=== PATIENT | male | born 1985 | race American Indian/Alaskan Native ===

== ENCOUNTER 2020-02-02 05:55 | Emergency (ER) | payer SELFPAY ==
[2020-02-02 06:14] VITALS: BP 119/74
[2020-02-02 07:11] LABS: Bilirubin,Urine NEG (Negative); Blood,Urine NEG (Negative); Color,Urine Yellow (Yellow); Mucus,Urine 1+ /HPF; Protein,Urine <15 mg/dL mg/dL (Negative); WBC,Urine < 1.0 /HPF (0.0-6.0)
[2020-02-02 07:58] LABS: Amphetamine Screen,Urine Negative; Methadone Screen,Urine Negative; Opiate Screen,Urine Negative
[2020-02-02 08:12] LABS: Benzodiazepines Screen,Urine Positive; Cannabinoid Screen,Urine Positive; Cocaine Screen,Urine Positive
== END 2020-02-02 07:00 | disposition left against medical advice (07) ==
LOC: ED 05:55
DX: Z76.0 Encounter for issue of repeat prescription (principal); Z53.21 Procedure and treatment not carried out due to patient leaving prior to being seen by health care provider
CPT/HCPCS: 80307; 81001

== ENCOUNTER 2020-02-05 00:41 | Emergency (ER) | payer MEDICAID ==
--- NOTE | 2020-02-05 02:56 | Emergency Department Report ---
ED General Adult HPI - General Chief complaint: Psych Stated complaint: PSYCH MEDICATION REFILL PUI?: No Time Seen by Provider: 02/05/20 02:12 Source: patient, RN notes reviewed, old records reviewed Mode of arrival: Ambulatory Limitations: No Limitations - History of Present Illness Initial comments: The patient was evaluated in the emergency department for symptoms described in the history of present illness. He/she was evaluated in the context of the global COVID-19 pandemic, which necessitated consideration that the patient might be at risk for infection with the virus that causes COVID-19. Institutional protocols and algorithms that pertain to the evaluation of patients at risk for COVID-19 are in a state of rapid change based on information released by regulatory bodies including the CDC and federal and state organizations. These policies and algorithms were followed during the patient's care in the emergency department. Please note that these policies, procedures and recommendations changed on a rapid basis. Patient is a 35-year-old gentleman who is not known to myself previously. He reports a past history of psychiatric disease and in the past has followed with [facility]. He presents to the ER with a complaint of painless request for having medications refilled; Depakote, 500 mg daily, Seroquel, and Klonopin. He denies physical pain, homicidality, suicidality, intention to overdose, and hallucinations. To me, he makes no complaint of insomnia. He denies additional complaints. He does not describe exacerbating factors, relieving factors, aggravating factors, radiation factors. He ran out of his medications approximately 9 months ago Improves with: none Worsens with: none Associated Symptoms: denies other symptoms - Related Data Previous Rx's Medication Instructions Recorded Last Taken Type Valproic Acid [DepaKENE] 500 mg PO QDAY #30 capsule 02/05/20 Unknown Rx Allergies Allergy/AdvReac Type Severity Reaction Status Date / Time No Known Allergies Allergy Unverified 02/02/20 06:26 ED Review of Systems ROS: Stated complaint: PSYCH MEDICATION REFILL Other details as noted in HPI Constitutional: denies: fever Eyes: denies: eye discharge ENT: denies: epistaxis Respiratory: denies: cough Cardiovascular: denies: chest pain Gastrointestinal: denies: abdominal pain Genitourinary: denies: dysuria Musculoskeletal: denies: back pain Psychiatric: denies: homicidal thoughts, suicidal thoughts ED Past Medical Hx - Past Medical History Previous Medical History?: Yes Hx Psychiatric Treatment: Yes (Bipolar, Schizophrenia) - Surgical History Past Surgical History?: No - Social History Smoking Status: Current Every Day Smoker Substance Use Type: Alcohol, Cocaine - Medications Home Medications: Home Medications Medication Instructions Recorded Confirmed Last Taken Type Valproic Acid [DepaKENE] 500 mg PO QDAY #30 capsule 02/05/20 Unknown Rx ED Physical Exam - General Limitations: No Limitations General appearance: alert, in no apparent distress - Head Head exam: Present: atraumatic, normocephalic - Eye Eye exam: Present: normal appearance, EOMI. Absent: nystagmus - ENT ENT exam: Present: normal exam, normal orophraynx, mucous membranes moist, normal external ear exam - Neck Neck exam: Present: normal inspection, full ROM. Absent: tenderness, meningismus - Respiratory Respiratory exam: Present: normal lung sounds bilaterally. Absent: respiratory distress, wheezes, rales, rhonchi, stridor, decreased breath sounds - Cardiovascular Cardiovascular Exam: Present: regular rate, normal rhythm, normal heart sounds. Absent: bradycardia, tachycardia, irregular rhythm, systolic murmur, diastolic murmur, rubs, gallop - GI/Abdominal GI/Abdominal exam: Present: soft. Absent: distended, tenderness, guarding, rebound, rigid - Rectal Rectal exam: Present: deferred - Extremities Exam Extremities exam: Present: normal inspection, full ROM, other (2+ pulses noted in the bilateral upper and lower extremities. There is no palpable cord. negative Homans sign. Muscular compartments are soft. The pelvis is stable.). Absent: pedal edema, calf tenderness - Back Exam Back exam: Present: normal inspection, full ROM. Absent: tenderness, CVA tenderness (R), CVA tenderness (L), paraspinal tenderness, vertebral tenderness - Neurological Exam Neurological exam: Present: alert, other (No facial droop. Tongue midline. Extraocular movements intact bilaterally. Facial sensation intact to light touch in V1, V2, V3 distribution bilaterally. 5 and a 5 strength in 4 extremities. Sensation intact to light touch in 4 extremities.). Absent: motor sensory deficit - Psychiatric Psychiatric exam: Present: flat affect. Absent: homicidal ideation, suicidal ideation - Skin Skin exam: Present: warm, dry, intact, normal color. Absent: rash ED Course Vital Signs 02/05/20 01:39 Temperature 98.4 F Pulse Rate 78 Respiratory 18 Rate Blood Pressure 115/74 O2 Sat by Pulse 97 Oximetry ED Medical Decision Making - Lab Data Vital Signs 02/05/20 01:39 Temperature 98.4 F Pulse Rate 78 Respiratory 18 Rate Blood Pressure 115/74 O2 Sat by Pulse 97 Oximetry - Medical Decision Making Differential diagnosis, including but not limited to: Medication refill, general medical examination, medical screening examination Assessment and plan: 35-year-old gentleman, who is afebrile, with reassuring vital signs, with a benign and unremarkable physical examination, who is clini ami sober at this time, with a flat affect, but not homicidal, not suicidal, appears to exhibit decision-making capacity at this time, who does not present in acute crisis. Patient does not appear to have an emergent medical condition present at this time. He does not meet criteria for 1013 at this time. I told the patient I would be happy to refill Depakote 500 mg once daily x2 weeks, but that he would need to follow-up with an outpatient primary care doctor or psychiatrist for his Seroquel and Klonopin prescriptions. Currently, the patient is sleeping comfortably on his stretcher, in no acute distress, he is quite arousable, and his physical exam is benign and unremarkable. Patient does not appear to have an emergent medical or psychiatric condition present at this time Critical care attestation.: If time is entered above; I have spent that time in minutes in the direct care of this critically ill patient, excluding procedure time. ED Disposition Clinical Impression: Medication refill, General medical exam Disposition: DC-01 TO HOME OR SELFCARE Is pt being admited?: No Does the pt Need Aspirin: No Condition: Good Additional Instructions: Please follow-up with a psychiatrist or primary care doctor within the next month to have outpatient medications refilled. Avoid consumption of alcohol, tobacco and smoke products. Please return to the emergency room right away with new pain, worsening pain, migration of pain, projectile vomiting, change in mental status, confusion, inability to tolerate liquid feeds, homicidality, suicidality, or any new, worsened or different symptoms not present on the initial emergency room evaluation. [facility] [Outside] - 3-5 Days [facility] [Provider Group] - 3-5 Days
[2020-02-05 04:02] VITALS: BP 111/54
== END 2020-02-05 03:00 | disposition home or self-care (01) ==
LOC: ED 00:41
DX: F20.9 Schizophrenia, unspecified (principal); F31.9 Bipolar disorder, unspecified; F17.200 Nicotine dependence, unspecified, uncomplicated; F14.10 Cocaine abuse, uncomplicated; Z79.899 Other long term (current) drug therapy; Z76.0 Encounter for issue of repeat prescription; Z00.00 Encounter for general adult medical examination without abnormal findings
CPT/HCPCS: 99281

== ENCOUNTER 2020-03-23 18:16 | Emergency (ER) | payer MEDICAID ==
--- NOTE | 2020-03-23 19:46 | Emergency Department Report ---
HPI - General Chief Complaint: Psych Time Seen by Provider: 03/23/20 19:38 - HPI HPI: Room 16 The patient is a 35-year-old male present with a chief complaint of schizophrenia. The patient reportedly has been off of his psychiatric medications and "missing for longer than a month." The patient came home at [facility] and has been noted to have hallucinations. There is no family present at bedside. When asked why came to the emergency department the patient replies "because of my mother." When asked why the patient replies "I do not know." When asked if anything is bothering him the patient denies. Patient denies suicidal or homicidal ideation. Patient denies auditory visual hallucinations. ED Past Medical Hx - Past Medical History Previous Medical History?: No Hx Psychiatric Treatment: Yes (Bipolar, Schizophrenia) - Surgical History Past Surgical History?: No - Family History Family history: no significant - Social History Smoking Status: Current Every Day Smoker Substance Use Type: Alcohol, Cocaine, Heroin, Marijuana, Methamphetamines - Medications Home Medications: Home Medications Medication Instructions Recorded Confirmed Last Taken Type Valproic Acid [DepaKENE] 500 mg PO QDAY #30 capsule 02/05/20 Unknown Rx ED Review of Systems ROS: Stated complaint: PSYCH Other details as noted in HPI Constitutional: no symptoms reported Eyes: denies: eye pain Respiratory: no symptoms reported Cardiovascular: denies: chest pain Endocrine: no symptoms reported Gastrointestinal: denies: abdominal pain Genitourinary: denies: dysuria Musculoskeletal: denies: back pain Neurological: denies: headache Psychiatric: denies: auditory hallucinations, visual hallucinations, homicidal thoughts, suicidal thoughts Physical Exam - Physical Exam Physical Exam: GENERAL: The patient is well-developed well-nourished male standing in hallway not appearing to be in acute distress. Patient has flat affect. Appears to be talking to self at times HEENT: Normocephalic. Atraumatic. Extraocular motions are intact. Patient has moist mucous membranes. NECK: Supple. Trachea midline CHEST/LUNGS: Clear to auscultation. There is no respiratory distress noted. HEART/CARDIOVASCULAR: Regular. There is no tachycardia. There is no gallop rub or murmur. ABDOMEN: Abdomen is soft, nontender. Patient has normal bowel sounds. There is no abdominal distention. SKIN: There is no rash. There is no edema. There is no diaphoresis. NEURO: The patient is awake, alert, and oriented. The patient is cooperative. The patient has no focal neurologic deficits. The patient has normal speech and gait. MUSCULOSKELETAL: There is no evidence of acute injury. ED Medical Decision Making - Lab Data Result diagrams: 03/23/20 19:49 03/23/20 19:49 Laboratory Tests 03/23/20 03/23/20 03/23/20 19:49 19:49 19:49 WBC 5.0 RBC 4.34 Hgb 14.2 Hct 41.6 MCV 96 H MCH 33 H MCHC 34 RDW 12.3 L Plt Count 217 [place] % (Auto) Manager Multimedia Add Manual Diff Complete Total Counted 100 Seg Neutrophils % Manager Multimedia Seg Neuts % (Manual) 34.0 L Band Neutrophils % 0 Lymphocytes % (Manual) 53.0 H Reactive Lymphs % (Man) 0 Monocytes % (Manual) 12.0 H Eosinophils % (Manual) 1.0 Basophils % (Manual) 0 Metamyelocytes % 0 Myelocytes % 0 Promyelocytes % 0 Blast Cells % 0 Nucleated RBC % Not Reportable Seg Neutrophils # Man 1.7 L Band Neutrophils # 0.0 Lymphocytes # (Manual) 2.7 Abs React Lymphs (Man) 0.0 Monocytes # (Manual) 0.6 Eosinophils # (Manual) 0.1 Basophils # (Manual) 0.0 Metamyelocytes # 0.0 Myelocytes # 0.0 Promyelocytes # 0.0 Blast Cells # 0.0 WBC Morphology Not Reportable Hypersegmented Neuts Not Reportable Hyposegmented Neuts Not Reportable Hypogranular Neuts Not Reportable Smudge Cells Not Reportable Toxic Granulation Not Reportable Toxic Vacuolation Not Reportable Dohle Bodies Not Reportable Pelger-Huet Anomaly Not Reportable Caroline Rods Not Reportable Platelet Estimate Consistent w auto Clumped Platelets Not Reportable Plt Clumps, EDTA Not Reportable Large Platelets Rare Giant Platelets Not Reportable Platelet Satelliting Not Reportable Plt Morphology Comment Not Reportable RBC Morphology Not Reportable Dimorphic RBCs Not Reportable Polychromasia Not Reportable Hypochromasia Not Reportable Poikilocytosis Not Reportable Anisocytosis Few Microcytosis Not Reportable Macrocytosis Not Reportable Spherocytes Not Reportable Pappenheimer Bodies Not Reportable Sickle Cells Not Reportable Target Cells Not Reportable Tear Drop Cells Not Reportable Ovalocytes Not Reportable Helmet Cells Not Reportable Stuart-[place] Bodies Not Reportable [place] Rings Not Reportable Graeme Cells Not Reportable Bite Cells Not Reportable Crenated Cell Not Reportable Elliptocytes Not Reportable Acanthocytes (Spur) Not Reportable Rouleaux Not Reportable Hemoglobin C Crystals Not Reportable Schistocytes Not Reportable Malaria parasites Not Reportable Frankie Bodies Not Reportable Hem Pathologist Commnt No Sodium 136 L Potassium 3.6 Chloride 100.0 Carbon Dioxide 24 Anion Gap 16 BUN 18 Creatinine 1.0 Estimated GFR > 60 BUN/Creatinine Ratio 18 Glucose 95 Calcium 9.0 Total Bilirubin 0.80 AST 20 ALT 18 Alkaline Phosphatase 91 Total Protein 7.2 Albumin 4.1 Albumin/Globulin Ratio 1.3 Urine Color Urine Turbidity Urine pH Ur Specific [place] Urine Protein Urine Glucose (UA) Urine Ketones Urine Blood Urine Nitrite Urine Bilirubin Urine Urobilinogen Ur Leukocyte Esterase Urine WBC (Auto) Urine RBC (Auto) U Epithel Cells (Auto) Urine Bacteria (Auto) Urine Mucus Salicylates 0.5 L Urine Opiates Screen Urine Methadone Screen Acetaminophen Ur Barbiturates Screen Ur Phencyclidine Scrn Ur Amphetamines Screen U Benzodiazepines Scrn Urine Cocaine Screen U Marijuana (THC) Screen Drugs of Abuse Note Plasma/Serum Alcohol 03/23/20 03/23/20 03/23/20 19:49 19:49 Unknown WBC RBC Hgb Hct MCV MCH MCHC RDW Plt Count [place] % (Auto) Add Manual Diff Total Counted Seg Neutrophils % Seg Neuts % (Manual) Band Neutrophils % Lymphocytes % (Manual) Reactive Lymphs % (Man) Monocytes % (Manual) Eosinophils % (Manual) Basophils % (Manual) Metamyelocytes % Myelocytes % Promyelocytes % Blast Cells % Nucleated RBC % Seg Neutrophils # Man Band Neutrophils # Lymphocytes # (Manual) Abs React Lymphs (Man) Monocytes # (Manual) Eosinophils # (Manual) Basophils # (Manual) Metamyelocytes # Myelocytes # Promyelocytes # Blast Cells # WBC Morphology Hypersegmented Neuts Hyposegmented Neuts Hypogranular Neuts Smudge Cells Toxic Granulation Toxic Vacuolation Dohle Bodies Pelger-Huet Anomaly Caroline Rods Platelet Estimate Clumped Platelets Plt Clumps, EDTA Large Platelets Giant Platelets Platelet Satelliting Plt Morphology Comment RBC Morphology Dimorphic RBCs Polychromasia Hypochromasia Poikilocytosis Anisocytosis Microcytosis Macrocytosis Spherocytes Pappenheimer Bodies Sickle Cells Target Cells Tear Drop Cells Ovalocytes Helmet Cells Stuart-[place] Bodies [place] Rings Graeme Cells Bite Cells Crenated Cell Elliptocytes Acanthocytes (Spur) Rouleaux Hemoglobin C Crystals Schistocytes Malaria parasites Frankie Bodies Hem Pathologist Commnt Sodium Potassium Chloride Carbon Dioxide Anion Gap BUN Creatinine Estimated GFR BUN/Creatinine Ratio Glucose Calcium Total Bilirubin AST ALT Alkaline Phosphatase Total Protein Albumin Albumin/Globulin Ratio Urine Color Yellow Urine Turbidity Clear Urine pH 5.0 Ur Specific [place] 1.032 H Urine Protein 30 mg/dl Urine Glucose (UA) Neg Urine Ketones Tr Urine Blood Neg Urine Nitrite Neg Urine Bilirubin Neg Urine Urobilinogen 4.0 Ur Leukocyte Esterase Neg Urine WBC (Auto) 27.0 H Urine RBC (Auto) 7.0 U Epithel Cells (Auto) < 1.0 Urine Bacteria (Auto) 1+ Urine Mucus Few Salicylates Urine Opiates Screen Urine Methadone Screen Acetaminophen 5.0 L Ur Barbiturates Screen Ur Phencyclidine Scrn Ur Amphetamines Screen U Benzodiazepines Scrn Urine Cocaine Screen U Marijuana (THC) Screen Drugs of Abuse Note Plasma/Serum Alcohol < 0.01 03/23/20 Unknown WBC RBC Hgb Hct MCV MCH MCHC RDW Plt Count [place] % (Auto) Add Manual Diff Total Counted Seg Neutrophils % Seg Neuts % (Manual) Band Neutrophils % Lymphocytes % (Manual) Reactive Lymphs % (Man) Monocytes % (Manual) Eosinophils % (Manual) Basophils % (Manual) Metamyelocytes % Myelocytes % Promyelocytes % Blast Cells % Nucleated RBC % Seg Neutrophils # Man Band Neutrophils # Lymphocytes # (Manual) Abs React Lymphs (Man) Monocytes # (Manual) Eosinophils # (Manual) Basophils # (Manual) Metamyelocytes # Myelocytes # Promyelocytes # Blast Cells # WBC Morphology Hypersegmented Neuts Hyposegmented Neuts Hypogranular Neuts Smudge Cells Toxic Granulation Toxic Vacuolation Dohle Bodies Pelger-Huet Anomaly Caroline Rods Platelet Estimate Clumped Platelets Plt Clumps, EDTA Large Platelets Giant Platelets Platelet Satelliting Plt Morphology Comment RBC Morphology Dimorphic RBCs Polychromasia Hypochromasia Poikilocytosis Anisocytosis Microcytosis Macrocytosis Spherocytes Pappenheimer Bodies Sickle Cells Target Cells Tear Drop Cells Ovalocytes Helmet Cells Stuart-[place] Bodies [place] Rings Lindsay Cells Bite Cells Crenated Cell Elliptocytes Acanthocytes (Spur) Rouleaux Hemoglobin C Crystals Schistocytes Malaria parasites Frankie Bodies Hem Pathologist Commnt Sodium Potassium Chloride Carbon Dioxide Anion Gap BUN Creatinine Estimated GFR BUN/Creatinine Ratio Glucose Calcium Total Bilirubin AST ALT Alkaline Phosphatase Total Protein Albumin Albumin/Globulin Ratio Urine Color Urine Turbidity Urine pH Ur Specific [place] Urine Protein Urine Glucose (UA) Urine Ketones Urine Blood Urine Nitrite Urine Bilirubin Urine Urobilinogen Ur Leukocyte Esterase Urine WBC (Auto) Urine RBC (Auto) U Epithel Cells (Auto) Urine Bacteria (Auto) Urine Mucus Salicylates Urine Opiates Screen Presumptive negative Urine Methadone Screen Presumptive negative Acetaminophen Ur Barbiturates Screen Presumptive negative Ur Phencyclidine Scrn Presumptive negative Ur Amphetamines Screen Presumptive negative U Benzodiazepines Scrn Presumptive negative Urine Cocaine Screen Presumptive negative U Marijuana (THC) Screen Presumptive negative Drugs of Abuse Note Disclamer Plasma/Serum Alcohol - Differential Diagnosis Schizophrenia Critical care attestation.: If time is entered above; I have spent that time in minutes in the direct care of this critically ill patient, excluding procedure time. ED Disposition Clinical Impression: Psychosis Disposition: DC/TX-65 PSY HOSP/PSY UNIT Is pt being admited?: No Does the pt Need Aspirin: No Condition: Fair Referrals: PRIMARY CARE, [Primary Care Provider] - 3-5 Days Time of Disposition: 01:19 (Awaiting acceptance)
[2020-03-23 20:17] LABS: Amphetamine Screen,Urine PRESUMPTIVE NEGATIVE; Bacteria,Urine 1+ /HPF (Negative); Benzodiazepines Screen,Urine PRESUMPTIVE NEGATIVE; Bilirubin,Urine NEG (Negative); Blood,Urine NEG (Negative); Cannabinoid Screen,Urine PRESUMPTIVE NEGATIVE; Cocaine Screen,Urine PRESUMPTIVE NEGATIVE; Color,Urine Yellow (Yellow); Methadone Screen,Urine PRESUMPTIVE NEGATIVE; Mucus,Urine FEW /HPF; Opiate Screen,Urine PRESUMPTIVE NEGATIVE
[2020-03-23 20:20] LABS: Hematocrit 41.6 % (35.5-45.6); Hemoglobin 14.2 gm/dl (11.8-15.2); Mean Corpuscular HGB Conc 34 % (32-34); Mean Corpuscular Volume 96 fl (84-94); Platelet Count 217 K/mm3 (140-440); Red Blood Count 4.34 M/mm3 (3.65-5.03); Red Cell Distribution Width 12.3 % (13.2-15.2)
[2020-03-23 20:28] LABS: Alanine Aminotransferase 18 units/L (7-56); Albumin 4.1 g/dL (3.9-5); BUN/Creatinine Ratio 18; Blood Urea Nitrogen 18 mg/dL (9-20); Hemolysis Index 5
[2020-03-23 21:04] LABS: Basophils % (Manual) 0 % (0.0-1.8); Total Cells Counted 100
[2020-03-23 21:05] LABS: Anisocytosis Few; Large Platelets Rare; Platelet Estimate Consistent w Auto
[2020-03-23] MEDS ORDERED: LORazepam 1 MG TAB PO ONE (23:34)
--- NOTE | 2020-03-24 08:29 | Consultation ---
History of Present Illness - Reason for Consult Consult date: 03/24/20 Reason for consult: MHE Requesting physician: JULIET HOYOS - History of Present Psychiatric Illness Per ED Provider: The patient is a 35-year-old male present with a chief complaint of schizophrenia. The patient reportedly has been off of his psy chiatric medications and "missing for longer than a month." The patient came home at [facility] and has been noted to have hallucinations. There is no family present at bedside. When asked why came to the emergency department the patient replies "because of my mother." When asked why the patient replies "I do not know." When asked if anything is bothering him the patient denies. Patient denies suicidal or homicidal ideation. Patient denies auditory visual hallucinations. PSYCH HPI Patient is a 35-year-old, single unemployed currently on SSI -[place] male who resides with family with past psychiatric history of schizophrenia and no significant past medical history who presented to the ER by ambulance after mom called to have patient evaluated for mental health issues. Family report patient has been off his psychiatric medication has been missing for more than a month but came obliterans giving her was noted to be having hallucinations. Patient requested that he would like to go home, when asked why left arm patient says the left arm because he wanted to be different and be somebody else and be independent but when that did not work out he could not find his way back home. At this moment patient is denying any auditory or visual sedation, patient is not acutely psychotic, and also denying SI or HI thoughts PAST PSYCHIATRIC HISTORY Diagnoses: Schizophrenia Suicide attempts or Self-harm behavior: None reported Prior psychiatric hospitalizations: Yes Substance Abuse history: Crack cocaine Previous psychiatric medications tried: Multiple medication Outpatient treatment: Noncompliant PAST MEDICAL HISTORY: None reported Family Psychiatric History: None reported or documented SOCIAL HISTORY Marital Status: Single Living Arrangements: With family Employment Status: [employer] Access to guns/weapons: None reported Education: 10th grade History of Abuse: None reported Legal History: None reported REVIEW OF SYSTEMS Constitutional: Negative for weight loss ENT: Negative for stridor Respiratory: Negative for cough or hemoptysis All other systems reviewed and are negative MENTAL STATUS EXAMINATION General Appearance and Behavior: Age appropriate, good hygiene, wearing appropriate clothes, good eye contact, cooperative polite with questioning. Cooperation: Participating/engaged Psychomotor Behavior: unremarkable and within normal limits Mood: Good Affect and affective range: congruent with mood Thought Process: circumstitial Thought Content: paranoid, i Speech: Normal volume, Regular rate and rhythm, Intellectual Functioning: Average Suicidal Ideation: Denies SI Homicidal Ideation: Denies HI Impulse Control: impaired Insight and Judgment: limited insight and judgment, Memory: Normal, Attention: Normal, Orientation: Alert, oriented, Diagnoses: Assessment and Plan - Psychiatric problem (1) Schizophrenia, borderline Current Visit: Yes Status: Acute Treatment Plan At this moment patient is denying any auditory or visual sedation, patient is not acutely psychotic, though patient appears to be restless pacing around. Due to history of noncompliance we will start patient on long-term IM Haldol Decanoate and have her follow-up outpatient with a psychiatrist. Patient to be observed for at least 3 hours post IM decanoate MEDICATIONS: Risks, benefits and alternatives of medications discussed with the patient, questions answered and consent obtained from patient. PSYCHOTHERAPY: Supportive psychotherapy provided MEDICAL: Per primary team DELIRIUM PRECAUTIONS: Please re-orient patient frequently, keep lights on during the day, and minimize benzodiazepines and opiates as these medications could worsen patient's confusion. 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 Please contact with any questions and/or concerns. Medications and Allergies Allergies Allergy/AdvReac Type Severity Reaction Status Date / Time No Known Allergies Allergy Unverified 02/02/20 06:26 Home Medications Medication Instructions Recorded Confirmed Last Taken Type Haldol Decanoate 50 mg IM QWEEK #1 vial 03/24/20 Unknown Rx Valproic Acid [DepaKENE] 500 mg PO BID #30 capsule 03/24/20 Unknown Rx Active Meds: Active Medications Levofloxacin (Levaquin) 500 mg PO QDAY SAUL Stop: 03/30/20 10:00 Mental Status Exam - Vital signs Last Vital Signs Temp 97.5 F L 03/24/20 08:21 Pulse 65 03/24/20 08:21 Resp 19 03/24/20 08:21 BP 112/55 03/24/20 08:21 Pulse Ox 98 03/24/20 08:21 Results Result Diagrams: 03/23/20 19:49 03/23/20 19:49 Abnormal lab results 03/23/20 03/23/20 03/23/20 Range/Units 19:49 19:49 19:49 MCV 96 H (84-94) fl MCH 33 H (28-32) pg RDW 12.3 L (13.2-15.2) % Seg Neuts % (Manual) 34.0 L (40.0-70.0) % Lymphocytes % (Manual) 53.0 H (13.4-35.0) % Monocytes % (Manual) 12.0 H (0.0-7.3) % Seg Neutrophils # Man 1.7 L (1.8-7.7) K/mm3 Sodium 136 L (137-145) mmol/L Ur Specific [place] (1.003-1.030) Urine WBC (Auto) (0.0-6.0) /HPF Salicylates 0.5 L (2.8-20.0) mg/dL Acetaminophen (10.0-30.0) ug/mL 03/23/20 03/23/20 Range/Units 19:49 Unknown MCV (84-94) fl MCH (28-32) pg RDW (13.2-15.2) % Seg Neuts % (Manual) (40.0-70.0) % Lymphocytes % (Manual) (13.4-35.0) % Monocytes % (Manual) (0.0-7.3) % Seg Neutrophils # Man (1.8-7.7) K/mm3 Sodium (137-145) mmol/L Ur Specific [place] 1.032 H (1.003-1.030) Urine WBC (Auto) 27.0 H (0.0-6.0) /HPF Salicylates (2.8-20.0) mg/dL Acetaminophen 5.0 L (10.0-30.0) ug/mL All other labs normal. Assessment and Plan - Psychiatric problem (1) Schizophrenia, borderline Current Visit: Yes Status: Acute
[2020-03-24] MEDS ORDERED: diphenhydrAMINE 50 MG/ML VIAL ONE (08:48)
[2020-03-24] MEDS ORDERED: HALOPERIDOL LACTATE 5 MG/1 ML INJ ONE (08:48)
[2020-03-24] MEDS ORDERED: LORazepam 2 MG/ML VIAL ONE (08:48)
[2020-03-24] MEDS ORDERED: LORazepam 2 MG/ML VIAL IM ONE (08:50)
[2020-03-24] MEDS ORDERED: HALOPERIDOL LACTATE 5 MG/1 ML INJ IM ONE (08:55)
[2020-03-24] MEDS ORDERED: diphenhydrAMINE 50 MG/ML VIAL IM ONE (08:58)
[2020-03-24] MEDS ORDERED: levoFLOXacin 500 MG TAB PO SCH (10:00)
[2020-03-24] MEDS ORDERED: NICOTINE 21 MG/24 HR PATCH TD ONE (10:00)
[2020-03-24] MEDS ORDERED: HALOPERIDOL DECANOATE 100 MG/1 ML INJ IM SCH ×2 (14:00)
[2020-03-24 15:45] VITALS: BP 120/61
== END 2020-03-24 16:05 | disposition home or self-care (01) ==
LOC: ED 18:16
DX: F29 Unspecified psychosis not due to a substance or known physiological condition (principal); F31.9 Bipolar disorder, unspecified; F17.200 Nicotine dependence, unspecified, uncomplicated; F14.10 Cocaine abuse, uncomplicated; F12.10 Cannabis abuse, uncomplicated; Z79.899 Other long term (current) drug therapy
CPT/HCPCS: 36415; 80053; 80307; 81001; 85007; 85025; 87086; 96372; 99285; J1200; J1630; J1631; J2060; 80320; G0480